=== PATIENT | male | born 1980 | race Caucasian/White ===

== ENCOUNTER 2017-02-08 20:29 | Emergency (ER) | payer SELFPAY | END 2017-02-08 22:23 | disposition home or self-care (01) | LOC: ER 20:29 | DX: M25.511 Pain in right shoulder (principal); R03.0 Elevated blood-pressure reading, without diagnosis of hypertension; F17.210 Nicotine dependence, cigarettes, uncomplicated | CPT/HCPCS: 96372; J1885 ==